=== PATIENT | female | born 1985 | race Caucasian/White ===

== ENCOUNTER 2020-07-17 22:22 | Inpatient (IN) | payer OTHER, SELFPAY ==
[2020-07-17 22:46] VITALS: BMI 36.0
[2020-07-17 22:51] VITALS: BP 128/77; PULSE 69; TEMP 36.3; O2SAT 99
[2020-07-18] MEDS: hydrOXYzine HCL 50 MG TABLET PO ×2 (01:41→18:35)
[2020-07-18] MEDS: traZODone HCL 50 MG TABLET PO (01:41)
--- NOTE | 2020-07-18 03:14 | PC.ADMIT ---
Patient is a 35 yo single female transferred from [facility] and admitted as a CV to at 22:30. Pt presented to [facility] ED on 07/17/20 with increased depression and SI. Pt has hx of arrest in 2016 after being charged as an accessory to a B&E. Pt was incarcerated in [facility] and finished two years of probation in February of 2020. Pt's three children were removed by DCF and placed in the custody of her older sister who also controls visitation. Older sister has not allowed pt to visit children in recent months due to a dispute. Pt currently lives alone in an apartment and works as a director supply in a restaurant. Reports missing one week of work and decreased appetite r/t depression. ASHBY positive for marijuana and reports daily use. Denies current ETOH use and reports less than monthly. Hx of heroin/opioid use but not since legal troubles. PMH of asthma, anemia, migraine h/a, pneumonia, , tonsillectomy, and cholecystectomy. Pt c/o chronic pain in left ankle but denied hx of falls. Pt smokes 1-2 packs of cigarettes daily and has 2 pack year hx. In 2018 pt attempted suicide in 2019 via intentional medication OD and treated at [facility]. Pt recently IPLOC at [facility] for depression/SI in June,. At time of admission pt denied current SI/plan/intent. Denied self-harm. Denied HI/VH/AH. A&O x4. Pt will seek staff if thoughts of SI increase. VSS at time of admit. Med rec complete. On-call provider notified and pt placed on five min safety checks with unlocked bathroom. Pt's goal is to establish a support system, psychiatric care, and to better myself.
[2020-07-18 06:00] VITALS: BP 105/56; PULSE 64; RESP 16; TEMP 36.6; O2SAT 96
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
[2020-07-18 18:00] VITALS: BP 116/66; PULSE 78; TEMP 36.7
[2020-07-18] MEDS: QUEtiapine Fumarate 100 MG TABLET PO (20:18)
--- NOTE | 2020-07-19 | ECG_ITS ---
Test Reason : QTC CHECK, ADMISSION Blood Pressure : / mmHG Vent. Rate : 088 BPM Atrial Rate : 088 BPM P-R Int : 162 ms QRS Dur : 078 ms QT Int : 376 ms P-R-T Axes : 042 055 002 degrees QTc Int : 454 ms Normal sinus rhythm Nonspecific T wave abnormality Abnormal ECG No previous ECGs available Referred By: Mireya Daley Electronically Signed By:NURIA PEREZ
[2020-07-19] MEDS: traZODone HCL 50 MG TABLET PO ×3 (02:34→22:48)
[2020-07-19] MEDS: hydrOXYzine HCL 50 MG TABLET PO ×2 (02:34→11:00)
[2020-07-19 06:00] VITALS: BP 111/57; PULSE 63; RESP 16; TEMP 36.8; O2SAT 98
[2020-07-19] MEDS: Nicotine 21 MG PATCH.TD24 TRANSDERMA (10:59)
[2020-07-19] MEDS: hydrOXYzine HCL 25 MG TABLET PO ×3 (13:56→19:57)
[2020-07-19] MEDS: Sertraline HCL 50 MG TABLET PO (13:56)
--- NOTE | 2020-07-19 15:06 | P.CONIM_ITS ---
History of Present Illness Data of Consult Service Date: 07/19/20 Primary Care Provider: Unknown Physician HPI Reason for consult: medical managment 35 year female with asthma, depression, PTSD, opioid and canabis use desorder presently admitted to inpatient Psych due to depression and suicidal thought. She has no acute medical problem at this time. Her asthma is stable. She actually feels better with depression and inquiring about when she is going home. Review of Systems Review of Systems: Yes all other systems are reviewed and are negative Constitutional: Constitutional: Reports no additional constitutional complaints Cardiovascular: Cardiovascular: Denies chest pain and Denies dyspnea Respiratory: Respiratory: Denies dyspnea Gastrointestinal: Gastrointestinal: Denies abdominal pain Psychiatric: Psychiatric: Denies anxiety and Denies homicidal ideation [facility] Medical History (Updated 07/20/20 @ 07:25 by Adán Keene MD) Anemia Asthma Asthma delivery delivered Migraines Opioid use disorder, moderate, in sustained remission Pneumonia PTSD (post-traumatic stress disorder) Recurrent major depression-severe Pertinent family history: mother and other relatives with diabetes Surgical History History of cholecystectomy Hx of tonsillectomy Social History Household Members: None Housing: Apartment Do you presently have visiting nurse or other home services: No Smoking Status: Current every day smoker Tobacco Type: Cigarette Packs Per Day: 1 Cigarettes Per Day: 20.0 Years Smoked: 2 Smoked in Last 30 Days: Yes Patient Interested in Nicotine Replacement: Yes Patient Given Instructions on How to Stop Smoking: Yes Date Education Initiated: 07/18/20 Use of substances other than those prescribed or required for medical reasons: No Substance Use Type: Opiates Currently Displaying Signs/Symptoms of Drug Intoxication Withdrawal: No Other Past Substance Use Problem:: heroin/opioid in 2017 Any prior treatment program specific to substance use: No Have you been hit, kicked, punched, or otherwise hurt by someone within the past year? If so, by whom?: No Do you feel safe in your current relationship?: No Current Relationship Is there a partner from a previous relationship who is making you feel unsafe now?: No Are you made to feel afraid or neglected: No Spiritual Healthcare Practices: patient denies Taoist Healthcare Practices: jainism Advance Directives: No Advance Directives Information Provided: Yes Suicidal Behavior: History of suicide attemps Current/Past Psychiatric Disorders: Chronic mental illess and PTSD Winkler Symptoms: Hopelessness Access to Firearms: No Risk Factors Comment: Patient denies means Do you have thoughts of harming others: None Do you have a plan to hurt others: No Plan Recently lost weight without trying: Yes service: No Sexual orientation: unknown Meds Allergies Allergy/AdvReac Type Severity Reaction Status Date / Time seafood Allergy Unknown Verified 07/17/20 22:30 shrimp Allergy Unknown Verified 07/17/20 22:28 Home Medications Medication Instructions Recorded Confirmed Type hydroxyzine HCl 50 mg PO Q4H PRN 07/17/20 07/17/20 History quetiapine [Seroquel] 100 mg PO BEDTIME 07/17/20 07/17/20 History Physical Exam Vital Signs and Narrative: Vital Signs: Last Vital Signs Temp 98.2 F 07/19/20 06:00 Pulse 63 07/19/20 06:00 Resp 16 07/19/20 06:00 BP 111/57 L 07/19/20 06:00 Pulse Ox 98 07/19/20 06:00 Body Mass Index 36.0 Assessment and Plan (1) Cannabis use disorder, mild, abuse: Status: Acute (2) Opioid use disorder, moderate, in sustained remission: Status: Acute (3) PTSD (post-traumatic stress disorder): Status: Acute 35/F with asthma depression, PTSD, opioid and canabis use desorder admitted due to depression and sucicidal thought. There are no acute medical issues. Please continue Psychiatric care, coucel on ilicit substance use. Call for further question, signing off. Thanks
--- NOTE | 2020-07-19 16:48 | P.PNPSI_ITS ---
Subjective Subjective Date of Service: 07/19/20 Reason For Visit: Depression Subjective Notes: Conditional Voluntary Interim History: pt out of bed today and easily engaged; she reports she is very anxious all the time; she feels body tension, fearful, heart racing; she reports feeling depressed and passive SI but no plan and no intent. She does not recall any past medication trials for [id number] or anti anxiety medications. Medication Compliance: Yes Side effects from medications: No Attending Groups: No Review of Systems Review of Systems Yes all other systems are reviewed and are negative Constitutional: Reports no additional constitutional complaints Cardiovascular: Denies chest pain and Denies dyspnea Respiratory: Denies dyspnea Gastrointestinal: Denies abdominal pain Psychiatric: Denies anxiety and Denies homicidal ideation Mental Status Exam Mental Status Exam Patient Appearance: Fatigued and Unkempt Patient Orientation: Person, Place and Situation Level of Consciousness: Awake, Restless and Alert Patient Behavior: Appropriate, Talkative and Cooperative Mood Description: Depressed and Anxious Affect Description: Anxious and Flat Patient Cognition Impaired: No Ability to Follow Directions: Fair Speech Pattern: Impoverished, Spontaneous Speech, Coherent and Long Pauses Hallucinations: None (denies) Thought Process: Distracted Thought Content: positive for Preoccupation and positive for Suicidal Ideation (passive ideation, no plan no intent) Depressive Symptoms: Increased Anxiety, Insomnia, Diff. Making Decisions, Muscle Tension, Increased Irritability, Difficulty Sleeping, Sleeping More Than Usual, Feelings of Worthlessness, Hopelessness, Isolating-Friends/Family, Increased Fatigue, Loss of Energy and Difficulty Concentrating Abnormal Motor Activity Signs and Symptoms: Restlessness Judgement: Fair Diagnostics Vital Signs (24Hr): Vital Signs - 24 hr 07/18/20 18:00 07/19/20 06:00 Temperature 98.1 F 98.2 F Pulse Rate 78 63 Respiratory Rate 16 Blood Pressure 116/66 111/57 L Pulse Oximetry 98 Body Mass Index 36.0 Medications Medications Current Medications Generic Name Dose Route Start Last Admin Trade Name Freq PRN Reason Stop Dose Admin Acetaminophen 650 mg 07/17/20 23:57 Acetaminophen 325 Mg Tablet PO Q6H PRN Headache/Pain Mild Scale (1-3) Al Hydroxide/Mg Hydroxide 30 ml 07/17/20 23:57 Magnesium Hydrox/Alum Hydrox 30 Ml Oral.Susp PO Q6H PRN Heartburn/Nausea Hydroxyzine HCl 25 mg 07/19/20 13:10 07/19/20 13:56 Hydroxyzine Hcl 25 Mg Tablet PO 25 mg BID DYLAN Administration Hydroxyzine HCl 25 mg 07/19/20 13:10 Hydroxyzine Hcl 25 Mg Tablet PO Q6H PRN anxiety/restlessness Magnesium Hydroxide 30 ml 07/17/20 23:57 Milk Of Magnesia 30 Ml Oral.Susp PO DAILY PRN Constipation Nicotine 21 mg 07/18/20 09:00 07/19/20 10:59 Nicotine 21 Mg Patch.Td24 TRANSDERMA 21 mg DAILY DYLAN Administration Nicotine Polacrilex 4 mg 07/17/20 23:57 Nicotine Polacrilex 2 Mg Gum BUCCAL Q2H PRN Nicotine Cravings Quetiapine Fumarate 100 mg 07/18/20 21:00 07/18/20 20:18 Quetiapine Fumarate 100 Mg Tablet PO 100 mg BEDTIME DYLAN Administration Sertraline HCl 50 mg 07/19/20 13:10 07/19/20 13:56 Sertraline Hcl 50 Mg Tablet PO 50 mg DAILY DYLAN Administration Trazodone HCl 50 mg 07/17/20 23:57 07/19/20 02:34 Trazodone Hcl 50 Mg Tablet PO 50 mg BEDTIME PRN Administration Insomnia Allergies Allergies Allergy/AdvReac Type Severity Reaction Status Date / Time seafood Allergy Unknown Verified 07/17/20 22:30 shrimp Allergy Unknown Verified 07/17/20 22:28 Assessment & Plan Assessment & Plan (1) Recurrent major depression-severe: Status: Acute Code(s): F33.2 - Major depressive disorder, recurrent severe without psychotic features (2) PTSD (post-traumatic stress disorder): Status: Acute Code(s): F43.10 - Post-traumatic stress disorder, unspecified (3) Opioid use disorder, moderate, in sustained remission: Status: Acute Code(s): F11.21 - Opioid dependence, in remission (4) Cannabis use disorder, mild, abuse: Status: Acute Code(s): F12.10 - Cannabis abuse, uncomplicated Assessment and Plan: Trial of zoloft 50 mg daily hydroxyzine 25 mg PRN anxiety and hs prn sleep Hospital consult as pt direct admit EKG Labs refused this am and reordered for 2/7 am -Begin diagnostics -Contact with [facility]brahim re med trials. Greater than 50% of the session was spent on counseling and/or coordination of care Reason for contiued inpatient stay Substantial Risk for: harm to self, inability to function and med/psych decompensation
[2020-07-19 18:46] VITALS: BP 124/71; PULSE 90; RESP 18; TEMP 36.8; O2SAT 98
[2020-07-19] MEDS: Acetaminophen 325 MG TABLET 650 MG PO (19:34)
[2020-07-19] MEDS: QUEtiapine Fumarate 100 MG TABLET PO (19:57)
[2020-07-19 21:50] VITALS: BP 114/63; PULSE 98
[2020-07-19] MEDS: cloNIDine HCL 0.1 MG TABLET PO (21:50)
[2020-07-19] MEDS: Ibuprofen 600 MG TABLET PO (21:50)
[2020-07-20 00:10] VITALS: BP 107/68; PULSE 85; RESP 18; TEMP 36.9; O2SAT 96
[2020-07-20 00:13] VITALS: BP 107/68; PULSE 85
[2020-07-20] MEDS: traZODone HCL 50 MG TABLET PO ×2 (00:13→21:23)
[2020-07-20] MEDS: cloNIDine HCL 0.1 MG TABLET PO ×4 (00:13→21:23)
[2020-07-20] MEDS: Acetaminophen 325 MG TABLET 650 MG PO ×3 (01:16→21:22)
[2020-07-20] MEDS: hydrOXYzine HCL 25 MG TABLET PO ×4 (01:16→22:53)
[2020-07-20 06:30] VITALS: BP 100/67; PULSE 70; RESP 18; TEMP 36.7; O2SAT 96
[2020-07-20] MEDS: Nicotine 21 MG PATCH.TD24 TRANSDERMA (08:34)
[2020-07-20] MEDS: Sertraline HCL 50 MG TABLET PO (08:34)
--- NOTE | 2020-07-20 14:16 | HO.PSYCHPN ---
Subjective Subjective Date of Service: 07/20/20 Reason For Visit: Depression Subjective Notes: 3 Day Interim History: pt had a difficult evening reporting restlessness, anxiety and restless legs. She finally disclosed to staff that she was withdrawing from opiates and had not been truthful. Her tox screen was nwegative, She was started on clonidine 0.1 mg TID PRN and requip prn for WD symptoms. She is getting some relief from meds. she reports she is very anxious all the time; she reports feeling depressed and passive SI but no plan and no intent. Medical consult done and no new medical problems identified Review of Systems Review of Systems Yes all other systems are reviewed and are negative Constitutional: Reports no additional constitutional complaints Cardiovascular: Denies chest pain and Denies dyspnea Respiratory: Denies dyspnea Gastrointestinal: Denies abdominal pain Psychiatric: Denies anxiety and Denies homicidal ideation Mental Status Exam Mental Status Exam Patient Appearance: Fatigued and Unkempt Patient Orientation: Person, Place and Situation Level of Consciousness: Awake, Restless and Alert Patient Behavior: Appropriate, Talkative and Cooperative Mood Description: Depressed and Anxious Affect Description: Anxious and Flat Patient Cognition Impaired: No Ability to Follow Directions: Fair Speech Pattern: Impoverished, Spontaneous Speech, Coherent and Long Pauses Diagnostics Vital Signs (24Hr): Vital Signs - 24 hr 07/19/20 18:46 07/19/20 21:50 07/20/20 00:10 Temperature 98.2 F 98.4 F Pulse Rate 90 98 85 Respiratory Rate 18 18 Blood Pressure 124/71 114/63 107/68 Pulse Oximetry 98 96 07/20/20 00:13 07/20/20 06:30 Temperature 98.1 F Pulse Rate 85 70 Respiratory Rate 18 Blood Pressure 107/68 100/67 Pulse Oximetry 96 Body Mass Index 36.0 Medications Medications Current Medications Generic Name Dose Route Start Last Admin Trade Name Freq PRN Reason Stop Dose Admin Acetaminophen 650 mg 07/17/20 23:57 07/20/20 11:21 Acetaminophen 325 Mg Tablet PO 650 mg Q6H PRN Administration Headache/Pain Mild Scale (1-3) Al Hydroxide/Mg Hydroxide 30 ml 07/17/20 23:57 Magnesium Hydrox/Alum Hydrox 30 Ml Oral.Susp PO Q6H PRN Heartburn/Nausea Clonidine HCl 0.1 mg 07/19/20 21:42 07/20/20 11:21 Clonidine Hcl 0.1 Mg Tablet PO 0.1 mg TID PRN Administration Opiate Withdrawal Protocol Hydroxyzine HCl 25 mg 07/19/20 13:10 07/20/20 08:34 Hydroxyzine Hcl 25 Mg Tablet PO 25 mg BID DYLAN Administration Hydroxyzine HCl 25 mg 07/19/20 13:10 07/20/20 01:16 Hydroxyzine Hcl 25 Mg Tablet PO 25 mg Q6H PRN Administration anxiety/restlessness Magnesium Hydroxide 30 ml 07/17/20 23:57 Milk Of Magnesia 30 Ml Oral.Susp PO DAILY PRN Constipation Nicotine 21 mg 07/18/20 09:00 07/20/20 08:34 Nicotine 21 Mg Patch.Td24 TRANSDERMA 21 mg DAILY DYLAN Administration Nicotine Polacrilex 4 mg 07/17/20 23:57 Nicotine Polacrilex 2 Mg Gum BUCCAL Q2H PRN Nicotine Cravings Quetiapine Fumarate 100 mg 07/18/20 21:00 07/19/20 19:57 Quetiapine Fumarate 100 Mg Tablet PO 100 mg BEDTIME DYLAN Administration Ropinirole HCl 0.25 mg 07/20/20 13:30 Ropinirole Hcl 0.25 Mg Tablet PO TID PRN Restlessness, restless legs Sertraline HCl 50 mg 07/19/20 13:10 07/20/20 08:34 Sertraline Hcl 50 Mg Tablet PO 50 mg DAILY DYLAN Administration Trazodone HCl 50 mg 07/17/20 23:57 07/20/20 00:13 Trazodone Hcl 50 Mg Tablet PO 50 mg BEDTIME PRN Administration Insomnia Allergies Allergies Allergy/AdvReac Type Severity Reaction Status Date / Time seafood Allergy Unknown Verified 07/17/20 22:30 shrimp Allergy Unknown Verified 07/17/20 22:28 Assessment & Plan Assessment & Plan (1) Cannabis use disorder, mild, abuse: Status: Acute Code(s): F12.10 - Cannabis abuse, uncomplicated (2) PTSD (post-traumatic stress disorder): Status: Acute Code(s): F43.10 - Post-traumatic stress disorder, unspecified (3) Opiate withdrawal: Status: Acute Code(s): F11.23 - Opioid dependence with withdrawal (4) Recurrent major depression-severe: Status: Acute Code(s): F33.2 - Major depressive disorder, recurrent severe without psychotic features (5) Asthma: Status: Acute Code(s): J45.909 - Unspecified asthma, uncomplicated Assessment and Plan: 35/F with asthma depression, PTSD, opioid and canabis use disorder admitted due to depression and sucicidal thought. There are no acute medical issues. continue Psychiatric care monitor opiate withdrawal and encourage PRNs if needed started on zoloft 50 mg daily for MDD and PTSD utilize hydroxyzine for anxiety Greater than 50% of the session was spent on counseling and/or coordination of care Patient educated on: diagnosis, medication risk/benefits and substance abuse Informed Consent: understands and further education needed Reason for contiued inpatient stay Substantial Risk for: harm to self and med/psych decompensation
[2020-07-20 16:04] VITALS: BP 109/68; PULSE 96
[2020-07-20 16:05] VITALS: BP 109/68; PULSE 96; TEMP 36.6
[2020-07-20] MEDS: QUEtiapine Fumarate 100 MG TABLET PO (20:04)
[2020-07-20] MEDS: rOPINIRole HCL 0.25 MG TABLET PO (20:09)
[2020-07-20 21:23] VITALS: BP 111/66; PULSE 91
[2020-07-21] MEDS: hydrOXYzine HCL 25 MG TABLET PO ×3 (00:02→20:38)
[2020-07-21] MEDS: rOPINIRole HCL 0.25 MG TABLET PO ×3 (00:02→22:12)
[2020-07-21] MEDS: traZODone HCL 50 MG TABLET PO (00:02)
[2020-07-21 01:24] VITALS: BP 102/57; PULSE 77
[2020-07-21] MEDS: cloNIDine HCL 0.1 MG TABLET PO ×3 (01:24→22:12)
[2020-07-21 06:00] VITALS: BP 96/55; PULSE 74; RESP 18; TEMP 36.3; O2SAT 98
[2020-07-21] MEDS: Sertraline HCL 50 MG TABLET PO (08:16)
[2020-07-21] MEDS: Nicotine 21 MG PATCH.TD24 TRANSDERMA (08:18)
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
[2020-07-21] MEDS: Acetaminophen 325 MG TABLET 650 MG PO (11:14)
--- NOTE | 2020-07-21 12:58 | MHC.RECOVRN ---
Recovery Support Note: 35 year old female admitted to [facility] after transfer from [facility] on 07/17/20 due to increased depression and SI. Upon admission pt reported last opiate use in 2016 and daily marijuana use. On 07/20/20, pt disclosed recent use of opiates to staff which prompted t/w consult. Pt reports first opiate use 3 years ago, but I just started using again in May. Pt states I was busy with work so I wasn't using. Currently using heroin, nasal, 3-4 bundles daily. Denies IV use. Last use (07/17/20). Pt reports withdrawal symptoms: chills, achy, diarrhea, no appetite. Pt does not appear in any discomfort, not diaphoretic, no rhinorrhea, sitting calmly/not restless, able to sit still, pupils normal size for room light, no yawn, no tremor. Pt denies past addiction treatment. Pt states They are working on getting me a therapist. Social: Pt currently lives alone in apartment in [place], sister has custody of children. 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 I open and close. Pt denies any support system. Pt denies family history of addiction. Pt is interested in [facility], particularly Vivitrol. Pt was educated regarding different treatment options and would like to pursue medication. Pt was given information regarding [facility] and the [facility]. Pt anticipates discharge on 07/23/20. Plan: Discussed with Sarai Cortes CNP and referred for addiction medication consult.
--- NOTE | 2020-07-21 17:01 | HO.ADDICTCON ---
History of Present Illness Date of Service: 07/21/2020 Chief Complaint: Depression Reason for Consult: OUD considering MAT Requesting physician: Luz Maria Bell Discussed with referring provider: Yes Sources of Information: patient interviewed and chart reviewed Additional Sources of Information: use. She is quite ashamed of her use and feels that she lacks self worth due to this. HPI Narrative: Patient is a 35 year old female with history of OUD and MDD, currently psychiatrically admitted with MDD sx. During crisis eval and admission to client denied substance, other than marijuana. After a day or two patient reported that she was experiencing opioid withdrawal sx and that she had not been forthcoming regarding her substance use. Of note, UDS was not completed at [facility] where all other lab work was completed. Patient reports she had been in recovery for 3 years and began to use heroin again in May. Currently using btwn 2-3 bundles QD IN. Denies any other substance use. She is quite ashamed of her use and feels that she lacks self worth due to this. Answered questions regarding treatment options as she had previously met with power generation plant operator. Patient reporting that she does not with to initiate methadone or buprenorphine. She is contemplating naltrexone. Past Psychiatric History: In Pt: [facility] 12/02/18, hx of Ibrahim 06/18/20 Out Pt: Assigned, met with [facility] psychiatry last week, on the waiting list for psychotherapy. Trials: Unable to provide information. Respite: recently a one day admission Hx of Motrin overdose 2019 after loss of custody of her children Medical Evaluation Reviewed: Yes Review of Systems Constitutional: Reports difficulty sleeping, Reports lethargy and Reports malaise Gastrointestinal: Reports loose stools, Reports nausea and Denies vomiting Musculoskeletal: Reports arthralgias Psychiatric: Reports abnormal sleep pattern, Reports anxiety, Reports depression, Reports hopelessness and Reports anhedonia Diagnostics Vital Signs (24Hr): Vital Signs - 24 hr 07/20/20 21:23 07/21/20 01:24 07/21/20 06:00 Temperature 97.4 F Pulse Rate 91 77 74 Respiratory Rate 18 Blood Pressure 111/66 102/57 L 96/55 L Pulse Oximetry 98 Body Mass Index 36.0 Mental Status Exam Mental Status Exam Patient Appearance: Appropriate Patient Orientation: Person, Place, Time and Situation Level of Consciousness: Awake, Appropriate and Alert Patient Behavior: Appropriate Mood Description: Blunted Affect Description: Blunted Patient Cognition Impaired: No Ability to Follow Directions: Excellent Speech Pattern: Clear Thought Process: Goal Oriented Thought Content: positive for Goal Oriented Judgement: Fair Medications Medications Current Medications Generic Name Dose Route Start Last Admin Trade Name Freq PRN Reason Stop Dose Admin Acetaminophen 650 mg 07/17/20 23:57 07/21/20 11:14 Acetaminophen 325 Mg Tablet PO 650 mg Q6H PRN Administration Headache/Pain Mild Scale (1-3) Al Hydroxide/Mg Hydroxide 30 ml 07/17/20 23:57 Magnesium Hydrox/Alum Hydrox 30 Ml Oral.Susp PO Q6H PRN Heartburn/Nausea Clonidine HCl 0.1 mg 07/19/20 21:42 07/21/20 01:24 Clonidine Hcl 0.1 Mg Tablet PO 0.1 mg TID PRN Administration Opiate Withdrawal Protocol Hydroxyzine HCl 25 mg 07/19/20 13:10 07/21/20 08:31 Hydroxyzine Hcl 25 Mg Tablet PO 25 mg BID DYLAN Administration Hydroxyzine HCl 25 mg 07/19/20 13:10 07/20/20 22:53 Hydroxyzine Hcl 25 Mg Tablet PO 25 mg Q6H PRN Administration anxiety/restlessness Lamotrigine 25 mg 07/21/20 21:00 Lamotrigine 25 Mg Tablet PO BEDTIME DYLAN Magnesium Hydroxide 30 ml 07/17/20 23:57 Milk Of Magnesia 30 Ml Oral.Susp PO DAILY PRN Constipation Mirtazapine 7.5 mg 07/21/20 21:00 Mirtazapine 7.5 Mg Tablet PO BEDTIME DYLAN Nicotine 21 mg 07/18/20 09:00 07/21/20 08:18 Nicotine 21 Mg Patch.Td24 TRANSDERMA 21 mg DAILY DYLAN Administration Nicotine Polacrilex 4 mg 07/17/20 23:57 Nicotine Polacrilex 2 Mg Gum BUCCAL Q2H PRN Nicotine Cravings Ropinirole HCl 0.25 mg 07/20/20 13:30 07/21/20 11:15 Ropinirole Hcl 0.25 Mg Tablet PO 0.25 mg TID PRN Administration Restlessness, restless legs Sertraline HCl 50 mg 07/19/20 13:10 07/21/20 08:16 Sertraline Hcl 50 Mg Tablet PO 50 mg DAILY DYLAN Administration Trazodone HCl 50 mg 07/17/20 23:57 07/21/20 00:02 Trazodone Hcl 50 Mg Tablet PO 50 mg BEDTIME PRN Administration Insomnia Allergies Allergies Allergy/AdvReac Type Severity Reaction Status Date / Time seafood Allergy Unknown Verified 07/17/20 22:30 shrimp Allergy Unknown Verified 07/17/20 22:28 Assessment & Plan Assessment & Plan (1) Opioid use disorder: Status: Acute Code(s): F11.99 - Opioid use, unspecified with unspecified opioid-induced disorder Recommendations: Based on follow up with patient, decision to start naltrexone prior to discharge 07/23. Will start with 25mg and observe. Patient aware of risks related to precipitated withdrawal, last use opioid use will be 6 days from start of naltrexone so risk minimal Plan to continue Naltrexone 50mg QD once discharged. Will be connected to [facility] for continuity of care Greater than 50% of the session was spent on counseling and/or coordination of care [facility] Past Medical History Medical History Anemia Asthma Asthma delivery delivered Migraines Opioid use disorder, moderate, in sustained remission Pneumonia PTSD (post-traumatic stress disorder) Recurrent major depression-severe Surgical History Surgical History History of cholecystectomy Hx of tonsillectomy Social History Social History (Updated 07/22/20 @ 16:26 by Sarai Cortes CNP) Household Members: None Housing: Apartment Do you presently have visiting nurse or other home services: No Smoking Status: Current every day smoker Tobacco Type: Cigarette Packs Per Day: 1 Cigarettes Per Day: 20.0 Years Smoked: 2 Smoked in Last 30 Days: Yes Patient Interested in Nicotine Replacement: Yes Patient Given Instructions on How to Stop Smoking: Yes Date Education Initiated: 07/18/20 Use of substances other than those prescribed or required for medical reasons: Yes Substance Use Type: Opiates Substance Use Frequency: Daily Last Used Substance: Just Prior to Admission Currently Displaying Signs/Symptoms of Drug Intoxication Withdrawal: No Within the last 12 months, any problems due to past substance use: Harm to relationships Other Past Substance Use Problem:: heroin/opioid in 2017 Any prior treatment program specific to substance use: No Have you been hit, kicked, punched, or otherwise hurt by someone within the past year? If so, by whom?: No Do you feel safe in your current relationship?: No Current Relationship Is there a partner from a previous relationship who is making you feel unsafe now?: No Are you made to feel afraid or neglected: No Spiritual Healthcare Practices: patient denies Presybeterian Healthcare Practices: yazdanism Advance Directives: No Advance Directives Information Provided: Yes Suicidal Behavior: History of suicide attemps Current/Past Psychiatric Disorders: Chronic mental illess and PTSD Winkler Symptoms: Hopelessness Access to Firearms: No Risk Factors Comment: Patient denies means Do you have thoughts of harming others: None Do you have a plan to hurt others: No Plan Recently lost weight without trying: Yes service: No Sexual orientation: unknown
[2020-07-21 17:16] VITALS: BP 121/62; PULSE 71
[2020-07-21 17:21] VITALS: BP 121/62; PULSE 71; TEMP 36.7
--- NOTE | 2020-07-21 17:27 | HO.PSYCHPN ---
Subjective Subjective Date of Service: 07/21/20 Reason For Visit: Depression Subjective Notes: 3 Day (07/23/20) Interim History: I have been using for a couple months, 3-4 bundles daily. I was sober for 3 years. I just worked 12 hours a day six days a week and slept the one day off. Reports not being able to see her kids over holidays as she was using was her main precipitant. Denies any history of addiction treatment. Reports poor sleep-Seroquel not helpful. TDN in place, I just want to go back to work. Refuses labs-fears needles, agrees to addiction eval, agrees to mood stabilizer trial. Medication Compliance: Yes Side effects from medications: No Attending Groups: No Review of Systems Reports behavioral changes Psychiatric: Reports abnormal sleep pattern, Reports behavioral changes, Reports depression, Reports difficulty concentrating, Reports hopelessness, Reports irritability, Reports mood swings and Reports suicidal ideation (denies plan or intent) Mental Status Exam Mental Status Exam Patient Orientation: Person, Place, Time and Situation Level of Consciousness: Awake and Alert Patient Behavior: Appropriate Mood Description: Depressed Affect Description: Flat Patient Cognition Impaired: No Ability to Follow Directions: Good Speech Pattern: Spontaneous Speech Memory Description: Intact Hallucinations: None Delusions: Not Present Thought Process: Racing (per pt report) Thought Content: positive for Racing (per pt report) and positive for Circumstantial Depressive Symptoms: Insomnia, Loss of Int. in Activity, Hopelessness, Unhappiness and Thoughts of /Suicide (denies current plan intent) Judgement: Fair Diagnostics Vital Signs (24Hr): Vital Signs - 24 hr 07/20/20 21:23 07/21/20 01:24 07/21/20 06:00 Temperature 97.4 F Pulse Rate 91 77 74 Respiratory Rate 18 Blood Pressure 111/66 102/57 L 96/55 L Pulse Oximetry 98 07/21/20 17:16 07/21/20 17:21 Temperature 98.0 F Pulse Rate 71 71 Respiratory Rate Blood Pressure 121/62 121/62 Pulse Oximetry Body Mass Index 36.0 Labs Labs: Refuses as she fears needles. Medications Medications Current Medications Generic Name Dose Route Start Last Admin Trade Name Freq PRN Reason Stop Dose Admin Acetaminophen 650 mg 07/17/20 23:57 07/21/20 11:14 Acetaminophen 325 Mg Tablet PO 650 mg Q6H PRN Administration Headache/Pain Mild Scale (1-3) Al Hydroxide/Mg Hydroxide 30 ml 07/17/20 23:57 Magnesium Hydrox/Alum Hydrox 30 Ml Oral.Susp PO Q6H PRN Heartburn/Nausea Clonidine HCl 0.1 mg 07/19/20 21:42 07/21/20 17:16 Clonidine Hcl 0.1 Mg Tablet PO 0.1 mg TID PRN Administration Opiate Withdrawal Protocol Hydroxyzine HCl 25 mg 07/19/20 13:10 07/21/20 08:31 Hydroxyzine Hcl 25 Mg Tablet PO 25 mg BID DYLAN Administration Hydroxyzine HCl 25 mg 07/19/20 13:10 07/20/20 22:53 Hydroxyzine Hcl 25 Mg Tablet PO 25 mg Q6H PRN Administration anxiety/restlessness Lamotrigine 25 mg 07/21/20 21:00 Lamotrigine 25 Mg Tablet PO BEDTIME DYLAN Magnesium Hydroxide 30 ml 07/17/20 23:57 Milk Of Magnesia 30 Ml Oral.Susp PO DAILY PRN Constipation Mirtazapine 7.5 mg 07/21/20 21:00 Mirtazapine 7.5 Mg Tablet PO BEDTIME DYLAN Nicotine 21 mg 07/18/20 09:00 07/21/20 08:18 Nicotine 21 Mg Patch.Td24 TRANSDERMA 21 mg DAILY DYLAN Administration Nicotine Polacrilex 4 mg 07/17/20 23:57 Nicotine Polacrilex 2 Mg Gum BUCCAL Q2H PRN Nicotine Cravings Ropinirole HCl 0.25 mg 07/20/20 13:30 07/21/20 11:15 Ropinirole Hcl 0.25 Mg Tablet PO 0.25 mg TID PRN Administration Restlessness, restless legs Sertraline HCl 50 mg 07/19/20 13:10 07/21/20 08:16 Sertraline Hcl 50 Mg Tablet PO 50 mg DAILY DYLAN Administration Trazodone HCl 50 mg 07/17/20 23:57 07/21/20 00:02 Trazodone Hcl 50 Mg Tablet PO 50 mg BEDTIME PRN Administration Insomnia Allergies Allergies Allergy/AdvReac Type Severity Reaction Status Date / Time seafood Allergy Unknown Verified 07/17/20 22:30 shrimp Allergy Unknown Verified 07/17/20 22:28 Assessment & Plan Assessment & Plan (1) Recurrent major depression-severe: Status: Acute Code(s): F33.2 - Major depressive disorder, recurrent severe without psychotic features Assessment and Plan: -Remeron 7.5 mg hs -Lamictal 25 mg daily -Pt reports she had scheduled court dates on 07/18 and 07/21 for driving without a license in [place] and [place]. She needs a note sent to court to inform them of admission. . Discussed with social service and they will provide information to the court. (2) PTSD (post-traumatic stress disorder): Status: Acute Code(s): F43.10 - Post-traumatic stress disorder, unspecified (3) Opioid use disorder, moderate, in sustained remission: Status: Acute Code(s): F11.21 - Opioid dependence, in remission Assessment and Plan: -Addiction evaluation -Considering Suboxone therapy (4) Cannabis use disorder, mild, abuse: Status: Acute Code(s): F12.10 - Cannabis abuse, uncomplicated Greater than 50% of the session was spent on counseling and/or coordination of care Reason for contiued inpatient stay Substantial Risk for: harm to self and inability to function
[2020-07-21] MEDS: Loperamide HCl 2 MG CAPSULE 4 MG PO (20:36)
[2020-07-21] MEDS: lamoTRIgine 25 MG TABLET PO (20:38)
[2020-07-21] MEDS: Mirtazapine 7.5 MG TABLET PO (20:39)
[2020-07-21 22:12] VITALS: BP 114/70; PULSE 82
[2020-07-22] MEDS: hydrOXYzine HCL 25 MG TABLET PO ×5 (04:06→21:26)
[2020-07-22] MEDS: rOPINIRole HCL 0.25 MG TABLET PO ×3 (04:06→19:48)
[2020-07-22 05:25] VITALS: BP 124/69; PULSE 66; RESP 16; TEMP 36.4; O2SAT 98
[2020-07-22 05:27] VITALS: BP 124/69; PULSE 66
[2020-07-22] MEDS: cloNIDine HCL 0.1 MG TABLET PO ×3 (05:27→20:09)
[2020-07-22] MEDS: Nicotine 21 MG PATCH.TD24 TRANSDERMA (08:53)
[2020-07-22] MEDS: Sertraline HCL 50 MG TABLET PO (08:54)
--- NOTE | 2020-07-22 12:04 | MHC.RECOVRN ---
Recovery Support Note: T/w met with pt to follow up on discussion regarding [facility]. Pt is looking forward to getting back home to her dog, Hope, and returning to work. Pt is interested in starting naltrexone to reduce opioid cravings. Pt reports feeling better than yesterday and described depression as mild. T/w encouraged pt to utilize other supports after discharge, such as NA, in addition to counseling. Pt agreeable to exploring other paths to recovery. Case discussed with Sarai Cortes CNP, who continues to follow.
[2020-07-22] MEDS: Acetaminophen 325 MG TABLET 650 MG PO ×2 (12:16→20:14)
[2020-07-22 13:41] VITALS: BP 127/73; PULSE 91
[2020-07-22 18:00] VITALS: BP 118/72; PULSE 79; TEMP 36.8
--- NOTE | 2020-07-22 18:51 | HO.PSYCHPN ---
Subjective Subjective Date of Service: 07/22/20 Reason For Visit: Depression Subjective Notes: 3 Day (07/23/20) Interim History: Preparing for discharge. Met with Sarai Cortes NP of addictions. Pt to begin Naltrexone on 07/23. Making arrangements for court dates, return to work, paying rent. More open to interventions today which were discussed. Medication Compliance: Yes Side effects from medications: No Attending Groups: No Review of Systems Review of Systems Yes all other systems are reviewed and are negative and Other (reports mild opiate withdrawal sx.) Psychiatric: Reports anxiety and Reports depression Mental Status Exam Mental Status Exam Patient Appearance: Appropriate Patient Orientation: Person, Place, Time and Situation Level of Consciousness: Awake and Alert Patient Behavior: Talkative Mood Description: Depressed and Anxious Affect Description: Flat Patient Cognition Impaired: No Ability to Follow Directions: Good Speech Pattern: Spontaneous Speech Memory Description: Intact Hallucinations: None Delusions: Not Present Thought Process: Intact Thought Content: positive for Intact Depressive Symptoms: Increased Anxiety and Sleeping More Than Usual Judgement: Good Diagnostics Vital Signs (24Hr): Vital Signs - 24 hr 07/21/20 22:12 07/22/20 05:25 07/22/20 05:27 Temperature 97.6 F Pulse Rate 82 66 66 Respiratory Rate 16 Blood Pressure 114/70 124/69 124/69 Pulse Oximetry 98 07/22/20 13:41 07/22/20 18:00 Temperature 98.3 F Pulse Rate 91 79 Respiratory Rate Blood Pressure 127/73 118/72 Pulse Oximetry Body Mass Index 36.0 Labs Labs: Declines, fears needles Medications Medications Current Medications Generic Name Dose Route Start Last Admin Trade Name Franklynq PRN Reason Stop Dose Admin Acetaminophen 650 mg 07/17/20 23:57 07/22/20 12:16 Acetaminophen 325 Mg Tablet PO 650 mg Q6H PRN Administration Headache/Pain Mild Scale (1-3) Al Hydroxide/Mg Hydroxide 30 ml 07/17/20 23:57 Magnesium Hydrox/Alum Hydrox 30 Ml Oral.Susp PO Q6H PRN Heartburn/Nausea Clonidine HCl 0.1 mg 07/19/20 21:42 07/22/20 13:41 Clonidine Hcl 0.1 Mg Tablet PO 0.1 mg TID PRN Administration Opiate Withdrawal Protocol Hydroxyzine HCl 25 mg 07/19/20 13:10 07/22/20 08:54 Hydroxyzine Hcl 25 Mg Tablet PO 25 mg BID DYLAN Administration Hydroxyzine HCl 25 mg 07/19/20 13:10 07/22/20 12:20 Hydroxyzine Hcl 25 Mg Tablet PO 25 mg Q6H PRN Administration anxiety/restlessness Lamotrigine 25 mg 07/21/20 21:00 07/21/20 20:38 Lamotrigine 25 Mg Tablet PO 25 mg BEDTIME DYLAN Administration Loperamide HCl 2 mg 07/21/20 20:28 Loperamide Hcl 2 Mg Capsule PO Q4H PRN Loose Stool Magnesium Hydroxide 30 ml 07/17/20 23:57 Milk Of Magnesia 30 Ml Oral.Susp PO DAILY PRN Constipation Mirtazapine 7.5 mg 07/21/20 21:00 07/21/20 20:39 Mirtazapine 7.5 Mg Tablet PO 7.5 mg BEDTIME DYLAN Administration Naltrexone HCl 25 mg 07/23/20 09:00 Naltrexone Hcl 50 Mg Tablet PO 07/23/20 09:01 ONCE ONE Nicotine 21 mg 07/18/20 09:00 07/22/20 08:53 Nicotine 21 Mg Patch.Td24 TRANSDERMA 21 mg DAILY DYLAN Administration Nicotine Polacrilex 4 mg 07/17/20 23:57 Nicotine Polacrilex 2 Mg Gum BUCCAL Q2H PRN Nicotine Cravings Ropinirole HCl 0.25 mg 07/20/20 13:30 07/22/20 12:17 Ropinirole Hcl 0.25 Mg Tablet PO 0.25 mg TID PRN Administration Restlessness, restless legs Sertraline HCl 50 mg 07/19/20 13:10 07/22/20 08:54 Sertraline Hcl 50 Mg Tablet PO 50 mg DAILY DYLAN Administration Trazodone HCl 50 mg 07/17/20 23:57 07/21/20 00:02 Trazodone Hcl 50 Mg Tablet PO 50 mg BEDTIME PRN Administration Insomnia Allergies Allergies Allergy/AdvReac Type Severity Reaction Status Date / Time seafood Allergy Unknown Verified 07/17/20 22:30 shrimp Allergy Unknown Verified 07/17/20 22:28 Assessment & Plan Assessment & Plan (1) Opioid use disorder: Status: Acute Code(s): F11.99 - Opioid use, unspecified with unspecified opioid-induced disorder Assessment and Plan: -Will begin Naltrexone on 07/23/20. (2) Recurrent major depression-severe: Status: Acute Code(s): F33.2 - Major depressive disorder, recurrent severe without psychotic features Assessment and Plan: -Continue current regime -Discharge via TDN on 07/23/20 (3) PTSD (post-traumatic stress disorder): Status: Acute Code(s): F43.10 - Post-traumatic stress disorder, unspecified (4) Cannabis use disorder, mild, abuse: Status: Acute Code(s): F12.10 - Cannabis abuse, uncomplicated Greater than 50% of the session was spent on counseling and/or coordination of care Reason for contiued inpatient stay Substantial Risk for: harm to self, inability to function and rapid decompensation
[2020-07-22] MEDS: Magnesium Hydrox/Alum Hydrox 30 ML ORAL.SUSP PO (19:46)
[2020-07-22] MEDS: Loperamide HCl 2 MG CAPSULE PO (19:46)
[2020-07-22] MEDS: Mirtazapine 7.5 MG TABLET PO (20:08)
[2020-07-22 20:09] VITALS: BP 112/66; PULSE 80
[2020-07-22] MEDS: lamoTRIgine 25 MG TABLET PO (20:09)
--- NOTE | 2020-07-22 22:22 | PC.NURSE ---
Patient c/o all over body pain that she rated 10/10 on 0-10 scale with 10 being the worst. Patient continues to say she is having Heroin w/d symptoms and requested Imodium for diarrhea, Tylenol for body aches and Requip for restless legs. None of the medications were very effective and patient continued to report that she was still having Heroin withdrawals. manager of finance psychiatrist was given the information. Ibuprofen was added for body aches and continue with other prns as previously ordered. Patiient also took a warm shower and given a weighted blanket. No tremors, no rhinitis, no increased blood pressure or heart rate noted. There was no urine tox screen done by the patient at [facility] or since her admission to .
[2020-07-22] MEDS: Ibuprofen 600 MG TABLET PO (22:31)
[2020-07-23 02:15] VITALS: BP 110/70; PULSE 81
[2020-07-23] MEDS: cloNIDine HCL 0.1 MG TABLET PO ×2 (02:15→09:24)
[2020-07-23] MEDS: traZODone HCL 50 MG TABLET PO (02:15)
[2020-07-23 02:16] VITALS: BP 110/70; PULSE 81; RESP 18; TEMP 36.1; O2SAT 98
[2020-07-23] MEDS: Naltrexone HCl 50 MG TABLET 25 MG PO (09:04)
[2020-07-23] MEDS: hydrOXYzine HCL 25 MG TABLET PO (09:04)
[2020-07-23] MEDS: Nicotine 21 MG PATCH.TD24 TRANSDERMA (09:04)
[2020-07-23] MEDS: Sertraline HCL 50 MG TABLET PO (09:04)
--- NOTE | 2020-07-23 09:26 | MHC.RECOVRN ---
Recovery Support Note: T/w met with pt to reiterate plan to begin naltrexone today. Pt agreeable and thankful. Pt has telehealth visit with [facility] to continue care on 07/24/20 at 1:15PM. CM aware.
[2020-07-23] MEDS: Loperamide HCl 2 MG CAPSULE PO (09:40)
--- NOTE | 2020-07-23 11:15 | PC.NURSE ---
PT REPORTS READINESS FOR DISCHARGE ON 07-23-2020 AROUND 1300. PT WILL BE PICKED UP BY HER MOTHER. SHE HAS A GOOD, STRONG SUPPORT SYSTEM. PT DENIES AUDITORY OR VISUAL HALLUCINATIONS. SHE HAS NO DESIRE TO HARM HERSELF OR OTHERS. PT SAYS HER URGES TO USE SUBSTANCES ARE NOT THERE AT THE MOMENT. PT REPORTS DEPRESSION IS IMPROVING. PT'S MOOD HAS BEEN STABLE AND PLEASANT WHILE HERE. PT IS COOPERATING WITH MEDICATIONS AND INTERESTED IN LEARNING ABOUT HER TREATMENT. PT HAS BEEN ABLE TO ADVOCATE FOR HER NEEDS AND ASK FOR PRN MEDICATIONS. PT HAS BEEN INDEPENDENTLY TAKING CARE OF HER ADLS. SHE IS NEAT AND WELL KEPT. SHE REPORTS MILD ANXIETY AND RESTLESSNESS. SHE IS EATING WELL AND SLEEPING ADEQUATELY. PT SAYS SHE IS HAVING VERY MILD SIGNS OF WITHDRAWAL FROM OPIOIDS STILL BUT THEY ARE MUCH BETTER AND THE MEDICATIONS ARE HELPING. PT HAS BEEN EDUCATED ON MEDICATION COMPLIANCE. HER PAPERWORK WILL BE FAXED TO HER PCP PER PROTOCOL.
--- NOTE | 2020-07-23 16:52 | P.DS_ITS ---
DS: Providers Provider Date of Service: 07/26/20 Date of admission: 07/17/20 22:22 Date of discharge: 07/23/20 Primary care physician: Judy Snell MD Consults: 07/19/20 13:10 Consult to Hospitalist Routine Consulting Provider: Hospitalist 07/21/20 10:58 Addiction Medicine Routine Consulting Provider: Sarai Cortes Reason for consultation: opiate dependence, recently sober 3 years, considering suboxone DS: Diagnosis Discharge Diagnosis (1) Opioid use disorder: Status: Acute Problem details: Pt reported two days after admission using 3-4 bundles daily and reported withdrawal symptoms. By history, three years sober. Reports she maintains sobriety by working 12 hour days, six days per week. (2) Recurrent major depression-severe: Status: Acute Problem details: Seen by [employer] crisis for an increase in depressive, anxious and SI. Sx increasing since the holiday season as she was not allowed to see her children (sister has adopted them) as she was using. Pt recently unable to attend work or attend to her appointments. (3) PTSD (post-traumatic stress disorder): Status: Acute (4) Cannabis use disorder, mild, abuse: Status: Acute DS: Medications Discharge Medications Home Medications: Home Medications Medication Instructions Recorded Confirmed hydroxyzine HCl 50 mg PO Q4H PRN 07/17/20 07/17/20 quetiapine [Seroquel] 100 mg PO BEDTIME 07/17/20 07/17/20 Previous Rx's Medication Instructions Recorded gabapentin 600 mg PO BEDTIME #14 tab 07/23/20 lamotrigine 25 mg PO BEDTIME #30 tab 07/23/20 mirtazapine 7.5 mg PO BEDTIME #30 tab 07/23/20 naloxone [Narcan] 4 mg INTRANASAL Q2M PRN #2 ea 07/23/20 naltrexone 25 mg PO DAILY #14 tab 07/23/20 omeprazole 20 mg PO DAILY #14 cap 07/23/20 sertraline 50 mg PO DAILY #30 tab 07/23/20 Discharge Plan Discharge Anticipated Discharge Date/Time: 07/23/20 16:00 Patient Disposition: Home, Self-Care Referrals: Vivitrol/Naltrexone: [facility] [Other] - 07/24/20 1:15 pm Therapist: Samantha Gomez ([facility]) [Other] - 07/25/20 10:00 am Psych Presc[facility] [Other] - 08/20/20 10:00 am Psych Presc[facility] [Other] - 09/17/20 11:20 am Judy Snell MD [Physician] - 08/06/20 8:45 am (IN OFFICE) Discharge Medications: New lamotrigine 25 mg Tablet 25 mg PO BEDTIME Qty: 30 RF: 0 sertraline 50 mg Tablet 50 mg PO DAILY Qty: 30 RF: 0 mirtazapine 7.5 mg Tablet 7.5 mg PO BEDTIME Qty: 30 RF: 0 naltrexone 50 mg tablet 25 mg PO DAILY Qty: 14 RF: 0 Narcan 4 mg/actuation spray,non-aerosol 4 mg intranasal Q2M PRN (Reason: opioid overdose) Qty: 2 RF: 0 gabapentin 600 mg tablet 600 mg PO BEDTIME Qty: 14 RF: 0 omeprazole 20 mg capsule,delayed release(DR/EC) 20 mg PO DAILY Qty: 14 RF: 0 Continued quetiapine [Seroquel] 100 mg Tablet 100 mg PO BEDTIME RF: 0 hydroxyzine HCl 50 mg Tablet 50 mg PO Q4H PRN (Reason: Anxiety) RF: 0 Discharge Orders: Discharge Order (Routine); Ordered 07/23/20 Ordered By: Luz Maria Bell Diet: advance to usual diet Activity on Discharge: As tolerated Stand Alone Forms: Patient Portal Discharge page Visit Report Forms: Patient Portal Discharge page Care Plan Goals: mood stability abstinence from substances recovery Health Concerns: Asthma Plan of Treatment: Continue current medication regime Abstain from substance use You have been given a Narcan prescription to use if needed Follow up with scheduled appointments You have filed and left treatment early via a three-day notice. Medications will take time to be effective and will need monitoring and dosage adjustment. Should you decide you are in need of further treatment, consult with your out patient providers, your local crisis team or call/return to [facility] for assistance Patient Instructions: Omeprazole (By mouth), Sertraline (By mouth), Gabapentin (By mouth), Lamotrigine (By mouth), Naltrexone (By mouth), Mirtazapine (By mouth), Naloxone (Into the nose) Discharge Date/Time: 07/23/20 12:50 Mental Status Exam Mental Status Exam Patient Appearance: Appropriate Patient Orientation: Person, Place, Time and Situation Level of Consciousness: Alert Patient Behavior: Cooperative Mood Description: Flat Affect Description: Flat Patient Cognition Impaired: No Ability to Follow Directions: Good Speech Pattern: Spontaneous Speech Memory Description: Intact Hallucinations: None Delusions: Not Present Thought Process: Intact Thought Content: positive for Intact Depressive Symptoms: Increased Anxiety Judgement: Good Data Data Completed and Pending Completed studies during hospitalization [Text1]: Pt refused as she is fearful of diagnostic testing. DS: Summary Hospital Course Hospital Course: Pt admitted and initally difficult to meet with as she was unable to remain awake. 48 hours into her admission she disclosed she had relaped over the past months and was using 3-4 bundles of heroin daily. She was treated for withdrawal, met with Sarai Cortes NP of addictions and will be trialing Naltrexone/Vivitrol. Sertraline/Remeron/Lamictal were initiated for depression and mood lability. Gabapentin was initiated for RLS and Omeprazole for GERD sx. Pt signed a TDN to leave as she wanted to return to work and will follow up with out patient psychiatric and addictions treatment. Status at Discharge Cognitive/behavioral status at discharge: alert, oriented, non suicidal, non ho micidal non psychotic Functional status at discharge: independent ambulation Overall status at discharge: patient is progressing back to baseline Time Spent with Patient Time attestation: Total time spent providing and/or coordinating discharge services: 45 Time spent: Greater than 30 minutes
== END 2020-07-23 12:50 | disposition home or self-care (01) | DRG 751 ==
PROVIDERS: Admitting Provider Psychiatry & Neurology Psychiatry; Visit Provider Clinical Nurse Specialist Psychiatric/Mental Health, Adult
DX: F33.2 Major depressive disorder, recurrent severe without psychotic features (principal); R45.851 Suicidal ideations; F11.23 Opioid dependence with withdrawal; F43.10 Post-traumatic stress disorder, unspecified; J45.909 Unspecified asthma, uncomplicated; F12.10 Cannabis abuse, uncomplicated; F17.210 Nicotine dependence, cigarettes, uncomplicated; Z71.6 Tobacco abuse counseling; Z79.899 Other long term (current) drug therapy
CPT/HCPCS: 93005

== ENCOUNTER → 2020-07-24 13:06 | Outpatient (BNVA) | payer OTHER, SELFPAY | PROVIDERS: Visit Provider Nurse Practitioner Psychiatric/Mental Health ==

== ENCOUNTER 2021-01-19 09:46 | Emergency (ER) | payer MEDICAID, SELFPAY ==
[2021-01-19 10:14] VITALS: BP 131/68; PULSE 67; RESP 18; TEMP 36.5; O2SAT 98; BMI 35.4
--- NOTE | 2021-01-19 12:15 | MHC.RECOVSUP ---
Recovery Support note: Patient is a 35 year old [place]araguan speaking female who presented to [facility] ED seeking detox. This designer writer met with patient to discuss her substance use and treatment options. Patient reports she is using 1-2 bundles of heroin a day. Patient reports I am using just to get by. Patient reports last using yesterday and states she is experiencing withdrawal symptoms at this time. Patient reports she has been contacting detox facilities however has been unable to secure a bed for treatment. Patient reports no medical concerns at this time, stating she only came to get help finding a detox program. Patient reports she is not taking any medications at this time. Patient reports a strong desire to stop using and to get into treatment to start her recovery. This designer writer will assist patient in securing a detox bed.
--- NOTE | 2021-01-19 12:44 | ED.PSYCH ---
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 Patient had a history of PTSD. Had a history of heroin use. Patient wants to stop. Presents to the emergency department. No suicidal homicidal ideation no alcohol abuse. Patient from home. Related Data Home Medications Medication Instructions Recorded Confirmed hydroxyzine HCl 50 mg tablet 50 mg PO Q4H PRN 07/17/20 07/17/20 quetiapine 100 mg tablet (Seroquel) 100 mg PO BEDTIME 07/17/20 07/17/20 Previous Rx's Medication Instructions Recorded gabapentin 600 mg tablet 600 mg PO BEDTIME #14 tab 07/23/20 lamotrigine 25 mg tablet 25 mg PO BEDTIME #30 tab 07/23/20 mirtazapine 7.5 mg tablet 7.5 mg PO BEDTIME #30 tab 07/23/20 naloxone 4 mg/actuation nasal 4 mg INTRANASAL Q2M PRN #2 ea 07/23/20 spray (Narcan) naltrexone 50 mg tablet 25 mg PO DAILY #14 tab 07/23/20 omeprazole 20 mg capsule,delayed 20 mg PO DAILY #14 cap 07/23/20 release sertraline 50 mg tablet 50 mg PO DAILY #30 tab 07/23/20 Allergies Allergy/AdvReac Type Severity Reaction Status Date / Time seafood Allergy Unknown Verified 01/19/21 10:14 shrimp Allergy Unknown Verified 01/19/21 10:14 Review of Systems Review of Systems: Constitutional: No Weight loss, No Fever, No Chills, No Night Sweats, No Fatigue, No Malaise ENT/Mouth: No Hearing loss, No Ear Pain, No Nasal Congestion, No Sinus Pain, No Hoarseness, No sore throat, No Rhinorrhea, No Swallowing Difficulty Eyes: No Eye Pain, No Swelling, No Redness, No Foreign Body, No Discharge, No Vision Changes Cardiovascular: No Chest Pain, No SOB, No Dyspnea on Exertion, No Orthopnea, No Edema, No Palpitations Respiratory: No Cough, No Sputum, No Wheezing, No Smoke Exposure, No Dyspnea Gastrointestinal: No Nausea, No Vomiting, No Diarrhea, No Constipation, No abdominal Pain, No Hematochezia, No Melena Genitourinary: no irregular bleeding, No Dysuria, No Urinary Frequency, No Hematuria, No Urinary Incontinence, No Urgency, No Flank Pain, No Urinary Flow Changes, No Hesitancy Musculoskeletal: No joint pain, No Myalgias, No Joint Swelling Skin: No Skin Lesions, No rash Neuro: No Weakness, No Numbness, No Paresthesias, No Loss of Consciousness, No Dizziness, No Headache Psych: No Anxiety/Panic, No Depression, No SI/HI/AH/VH, No Social Issues, Heme/Lymph: No Bruising, No Bleeding,No Lymphadenopathy Endocrine: No Polyuria, No Polydipsia, No Temperature Intolerance Yes all other systems are reviewed and are negative [facility] Past Medical History Attestation statement: The following information was validated with the patient. Medical History Anemia Asthma Asthma delivery delivered Migraines Pneumonia PTSD (post-traumatic stress disorder) Recurrent major depression-severe Surgical History History of cholecystectomy Hx of tonsillectomy Social History Social History Household Members: None Housing: Apartment Do you presently have visiting nurse or other home services: No Cigarette Packs Per Day: 1 Cigarettes Per Day: 20.0 Years Smoked: 2 Substance Use Type: Opiates Advance Directives: Yes Advance Directives Information Provided: Yes Advance Directives on File: No Patient : No service: No Sexual orientation: unknown Physical Exam Vital Signs: Vital Signs: Last Vital Signs Temp 97.6 F 01/19/21 15:20 Pulse 74 01/19/21 15:20 Resp 16 01/19/21 15:20 BP 153/87 H 01/19/21 15:20 Pulse Ox 98 01/19/21 15:20 Body Mass Index 35.4 Appearance: Alert. Oriented X3. No acute distress. Eyes: Pupils equal, round and reactive to light. ENT: Pharynx normal. Neck: Normal inspection. Neck supple. No lymph nodes noted. No crepitus CVS: Normal heart rate and rhythm. Pulses normal. Normal S1 and S2 Respiratory: No respiratory distress. Breath sounds normal. No Wheezing. No rales Abdomen: Soft and nontender. No rigidity. No distention. good BS x4 Skin: Skin warm and dry. Normal skin color. Normal skin turgor. Extremities: No lower extremity edema. Neurovascular intact to all extremities. No Lacerations. No Rash Neuro: Oriented X 3. No motor deficit. No sensory deficit. Moving all extermities. No slurred speech MDM - Psych MDM Narrative Medical decision making narrative: Will get substance abuse counselor is involved to help patient. Patient is seen by substance abuse counselor. Arranged for patient to get detox. In stable condition. Lab Data Labs: Lab Results 01/19/21 Range/Units 15:30 Coronavirus (PCR) NEGATIVE (Negative) Influenza Type A (PCR) NEGATIVE (Negative) Influenza Type B (PCR) NEGATIVE (Negative) RSV RNA Qual (PCR) NEGATIVE (Negative) Discharge Plan Discharge Clinical Impression: Narcotic abuse Patient Disposition: Home, Self-Care Prescriptions: No Action quetiapine [Seroquel] 100 mg Tablet 100 mg PO BEDTIME RF: 0 hydroxyzine HCl 50 mg Tablet 50 mg PO Q4H PRN (Reason: Anxiety) RF: 0 lamotrigine 25 mg Tablet 25 mg PO BEDTIME Qty: 30 RF: 0 sertraline 50 mg Tablet 50 mg PO DAILY Qty: 30 RF: 0 mirtazapine 7.5 mg Tablet 7.5 mg PO BEDTIME Qty: 30 RF: 0 naltrexone 50 mg tablet 25 mg PO DAILY Qty: 14 RF: 0 Narcan 4 mg/actuation spray,non-aerosol 4 mg intranasal Q2M PRN (Reason: opioid overdose) Qty: 2 RF: 0 gabapentin 600 mg tablet 600 mg PO BEDTIME Qty: 14 RF: 0 omeprazole 20 mg capsule,delayed release(DR/EC) 20 mg PO DAILY Qty: 14 RF: 0
[2021-01-19 15:20] VITALS: BP 153/87; PULSE 74; RESP 16; TEMP 36.4; O2SAT 98
--- NOTE | 2021-01-19 15:23 | MHC.RECOVSUP ---
Recovery Support note: Patient completed intake with [facility] and has been accepted for a 2100 admission time. ED provider and RN aware. Hilda scheduled for 1999 through [employer].
--- NOTE | 2021-01-19 16:08 | MHC.RECOVSUP ---
Patient reports she does not want to remain in the ED until 8PM and that she plans to go home to shower and return to the ED to get the taxi. Explained to patient that she does not need to readmit to the ED, she just has to wait outside at 8PM for the taxi. Patient acknowledged and reports she will return. Discussed case with patient's ED provider and RN. Informed security that patient may wait outside around 8PM.
[2021-01-19 16:25] LABS: Influenza A PCR NEGATIVE (Negative); Influenza B PCR NEGATIVE (Negative); Resp Syncy Virus RNA Qual PCR NEGATIVE (Negative); SARS COV2 PCR INHOUSE NEGATIVE (Negative)
== END 2021-01-19 20:00 | disposition home or self-care (01) ==
PROVIDERS: Emergency Provider Emergency Medicine Emergency Medical Services; PCP Internal Medicine
DX: F11.10 Opioid abuse, uncomplicated (principal); F17.210 Nicotine dependence, cigarettes, uncomplicated; Z71.6 Tobacco abuse counseling; Z79.899 Other long term (current) drug therapy; Z71.51 Drug abuse counseling and surveillance of drug abuser
CPT/HCPCS: 0241U; 36415; 99283